=== PATIENT | female | born 1955 | race Caucasian/White ===

== ENCOUNTER 2018-05-13 05:44 | Day surgery (SDC) | payer OTHER ==
[2018-05-13] MEDS ORDERED: MIDAZOLAM 1 MG/ML 2 ML INJ (08:08)
[2018-05-13] MEDS ORDERED: FENTAnyl 50 MCG/ML VIAL (08:08)
[2018-05-13] MEDS ORDERED: ONDANSETRON 4 MG INJ (08:22)
== END 2018-05-13 11:39 | disposition home or self-care (01) ==
LOC: GIL 05:44
DX: R10.10 Upper abdominal pain, unspecified (principal)
CPT/HCPCS: 43239; 88305; 88312